=== PATIENT | female | born 1990 | race Caucasian/White ===

== ENCOUNTER 2025-03-23 14:45 | Emergency (ER) | payer OTHER ==
[~2025-03-23] VITALS: Ht 167.6 cm; Wt 72.0 kg
[2025-03-23 14:57] VITALS: O2SAT 99
[2025-03-23 16:25] LABS: BASOPHILS % 0.7 % (0.0-2.0); EOSINOPHILS % 0.1 % (0.0-5.0); HEMATOCRIT. 42.1 % (36.0-48.0); HEMOGLOBIN. 14.0 g/dL (12.0-16.0); LYMPHOCYTES % 9.8 % (20.0-50.0); MEAN PLATELET VOLUME 7.7 fl (7.4-10.4); MONOCYTES % 4.5 % (2.0-8.0); NEUTROPHILS % 84.9 % (40.0-76.0); PLATELET 258 x1000/uL (130-400); RED BLOOD CELL COUNT 5.09 mill/uL (4.2-5.4); RED CELL DISTRIBUTION WIDTH 13.7 % (11.6-14.6)
[2025-03-23 16:41] LABS: CREATININE 0.7 mg/dL (0.6-1.0); UREA NITROGEN BLOOD 10 mg/dL (9-23)
[2025-03-23 18:43] LABS: CLARITY URINE TURBID (CLEAR); COLOR URINE DARK YELLOW (YELLOW); GLUCOSE URINE NEGATIVE (NEGATIVE); KETONES URINE TRACE (NEGATIVE); LEUKOCYTE ESTERASE URINE 3+ (NEGATIVE); NITRITE URINE POSITIVE (NEGATIVE); OCCULT BLOOD URINE 3+ (NEGATIVE); PH URINE 5.5 (4.5-8.0); PROTEIN URINE 3+ (NEGATIVE); SPECIFIC GRAVITY URINE 1.015 (1.005-1.030); UROBILINOGEN URINE 1.0 E.U./dL (0.2-1.0)
[2025-03-23 19:02] LABS: BACTERIA URINE 1+; MUCUS URINE 1+ /lpf (< = 2+); SQUAMOUS EPITHELIAL CELL URINE 1+ /lpf (RARE/1+); WBC URINE TNTC /hpf (0-2)
[2025-03-23 19:34] LABS: HCG SCREEN NEGATIVE
[2025-03-23] MEDS ORDERED: IBUP-2029 MT (19:56)
[2025-03-23] MEDS ORDERED: CEFP200T13 MT (19:56)
[2025-03-23] MEDS: SODIUM CHLORIDE 0.9% (SEPSIS BOLUS) IV ONE (20:14)
[2025-03-23] MEDS: CEFTRIAXONE 1GM/50ML 50 ML IV ONE (20:15)
[2025-03-23] MEDS: ONDANSETRON HCL 4MG/2ML INJ IV ONE (20:17)
[2025-03-23] MEDS: KETOROLAC 15MG/ML VIAL IV ONE (20:17)
[2025-03-23 22:23] VITALS: BP 118/76; PULSE 82; RESP 12; TEMP 37.2; O2SAT 99
== END 2025-03-23 22:25 | disposition home or self-care (01) ==
LOC: ER 14:45
DX: N12 Tubulo-interstitial nephritis, not specified as acute or chronic (principal)
CPT/HCPCS: 80048; 81003; 81025; 84703; 83605; 85025; 87040; 87086; 87186; 87077; 36415; 84145; 74176; 96365; 96375; 99285; J0696; J1885; J2405; J7030; Z7610